=== PATIENT | male | born 1975 | race Hispanic/Latino ===

== ENCOUNTER 2021-11-29 15:13 | Emergency (ER) | payer OTHER ==
[~2021-11-29] VITALS: Ht 170.2 cm; Wt 99.8 kg
[2021-11-29 15:59] LABS: BASOPHILS % (AUTO) 0.1 % (0.0-5.0); EOSINOPHILS % (AUTO) 0.2 % (0.0-8.0); HEMATOCRIT 45.7 % (42-54); LYMPHOCYTES % (AUTO) 3.6 % (21.0-51.0); MEAN CORPUSCULAR HEMOGLOBIN 29.9 pg (27.0-33.0); MEAN CORPUSCULAR HGB CONC 34.6 g/dL (32.0-36.0); MEAN CORPUSCULAR VOLUME 86.4 fL (79-99); MONOCYTES % (AUTO) 2.4 % (3.0-13.0); NEUTROPHILS % (AUTO) 93.4 % (40.0-77.0); PLATELET COUNT (AUTO) 182 K/uL (130-400); RED BLOOD CELL COUNT(AUTO) 5.29 MIL/uL (4.50-6.20); RED CELL DISTRIBUTION WIDTH 13.2 % (11.0-15.5)
[2021-11-29] MEDS ORDERED: ONDANSETRON 4MG INJ IVP ONE (16:00)
[2021-11-29] MEDS ORDERED: 0.9%NACL 1000ML 2,000 ML IV ONE (16:00)
[2021-11-29 16:08] LABS: CREATININE 0.9 mg/dL (0.5-1.5); POTASSIUM 3.7 mmol/L (3.5-5.1)
[2021-11-29 16:13] LABS: BILIRUBIN,TOTAL 0.7 mg/dL (0.2-1.0); TOTAL PROTEIN, SERUM 7.8 g/dL (6.0-8.3)
[2021-11-29 16:31] VITALS: BP 111/72
[2021-11-29] MEDS ORDERED: ONDA4TAB10 PO (16:43)
== END 2021-11-29 16:52 | disposition home or self-care (01) ==
LOC: EDH 15:13
DX: K52.9 Noninfective gastroenteritis and colitis, unspecified (principal); E86.9 Volume depletion, unspecified; R11.10 Vomiting, unspecified; Z86.16 Personal history of COVID-19
CPT/HCPCS: 36415; 80053; 85025; 96361; 96374; 99283; J2405; J7030

== ENCOUNTER 2024-08-28 02:14 | Emergency (ER) | payer SELFPAY ==
[~2024-08-28] VITALS: Ht 172.7 cm; Wt 97.5 kg
[~2024-08-28 02:14] MED LIST: ONDA-243 PO; TAMS-1 PO
[2024-08-28 02:35] LABS: BASOPHILS # (AUTO) 0.03 K/uL (0.00-0.20); BASOPHILS % (AUTO) 0.2 % (0.0-5.0); EOSINOPHILS # (AUTO) 0.13 K/uL (0.00-0.70); EOSINOPHILS % (AUTO) 0.8 % (0.0-8.0); HEMATOCRIT 45.2 % (42-54); IMMATURE GRANULOCYTE ABSOLUTE 0.05 K/uL (0-1); LYMPHOCYTES % (AUTO) 5.7 % (21.0-51.0); MEAN CORPUSCULAR HEMOGLOBIN 30.1 pg (27.0-33.0); MEAN CORPUSCULAR VOLUME 86.1 fL (79-99); MONOCYTES # (AUTO) 0.5 K/uL (0.1-1.0); MONOCYTES % (AUTO) 2.8 % (3.0-13.0); NEUTROPHILS % (AUTO) 90.2 % (40.0-77.0); PLATELET COUNT (AUTO) 238 K/uL (130-400); RED BLOOD CELL COUNT(AUTO) 5.25 MIL/uL (4.50-6.20); RED CELL DISTRIBUTION WIDTH 12.9 % (11.0-15.5); WHITE BLOOD COUNT (AUTO) 16.6 K/uL (4.8-10.8)
[2024-08-28] MEDS: ondanSETRON 4MG INJ IVP ONE (02:35)
[2024-08-28] MEDS: LACTATED RINGERS 1000ML 1,000 ML IV ONE (02:35)
[2024-08-28] MEDS: PANTOPrazole 40 MG/VIAL IVP ONE (02:35)
[2024-08-28 02:45] LABS: POTASSIUM 4.1 mmol/L (3.5-5.1)
[2024-08-28 02:49] LABS: ALBUMIN 4.2 g/dL (3.5-5.0); BILIRUBIN,TOTAL 0.6 mg/dL (0.2-1.0); TOTAL PROTEIN, SERUM 7.8 g/dL (6.0-8.3)
[2024-08-28] MEDS ORDERED: DICY10 PO (03:37)
[2024-08-28] MEDS ORDERED: PANT40TA55 PO (03:37)
--- NOTE | 2024-08-28 03:37 | ERN ---
General Chief Complaint: Nausea,Vomiting,Diarrhea Stated Complaint: NAUSEA VOMITNG Time Seen by MD: 02:19 Source: patient History of Present Illness Initial Comments 48-YEAR-OLD MALE COMING IN WITH THE ABDOMINAL PAIN NAUSEA AND VOMITING AND DIARRHEA PER PATIENT THESE SYMPTOMS BEGAN EARLIER TODAY. HE ATTRIBUTES THESE SYMPTOMS ASSOCIATED WITH THE POSSIBLE CONTAMINATED FOOD. SICK CONTACTS INCLUDE . Allergies: Coded Allergies: No Known Allergies (Unverified Allergy, Unknown, 11/29/21) Home Meds Active Scripts Tamsulosin HCl (Flomax) 0.4 Mg Cap.er.24h, 0.4 MG PO DAILY, #30 CAPSULE.DR Prov:ADELAIDE NAVA 01/28/23 Ondansetron (Ondansetron Odt) 4 Mg Tab.rapdis, 4 MG PO TIDP PRN for VOMITING, #12 TAB 0 Refills Prov:SHAHANA MATA MD 11/29/21 Past Medical History Past Medical History: No Pertinent History Medical History Other: COVID 10/14 Past Surgical History: None Social History Social History: Other ROS Dictation CONSTITUTIONAL: NO CHILLS, NO FEVER, NO WEAKNESS, NO DIAPHORESIS, NO MALAISE. HEAD/FACE: NO SIGNS OF TRAUMA. EENT: NO EYE PAIN, NO BLURRED VISION, NO TEARING, NO DOUBLE VISION, NO EAR PAIN, NO EAR DISCHARGE, NO NOSE PAIN, NO NASAL CONGESTION, NO THROAT PAIN, NO THROAT SWELLING, NO MOUTH PAIN. RESPIRATORY: NO COUGH, NO ORTHOPNEA, NO SOB, NO STRIDOR, NO WHEEZING. CARDIOVASCULAR: NO CHEST PAIN, NO EDEMA, NO PALPITATIONS, NO SYNCOPE. GASTROINTESTINAL/ABDOMINAL: NO ABDOMINAL PAIN, NO CONSTIPATION, DIARRHEA, NAUSEA, VOMITING. GENITOURINARY: NO ABNORMAL DISCHARGE, NO DYSURIA, NO FREQUENT URINATION, NO HEMATURIA. NO COMPLAINTS OF PAIN IN THE GENITALS. MUSCULOSKELETAL: NO BACK PAIN, NO GOUT, NO JOINT PAIN, NO JOINT SWELLING, NO MUSCLE PAIN, NO MUSCLE STIFFNESS, NO NECK PAIN. INTEGUMENTARY: NO CHANGE IN COLOR, NO CHANGE IN HAIR/NAILS, NO DRYNESS, NO LESION, NO LUMPS, NO RASH. NEUROLOGICAL/PSYCH: NO ANXIETY, NOT DEPRESSED, NO EMOTIONAL PROBLEM, NO HEADACHE, NO NUMBNESS, NO PRE-EXISTING DEFICIT, NO HISTORY OF SEIZURES, NO TREMORS, NO WEAKNESS. HEMATOLOGIC/LYMPHATIC: NOT ANEMIC, NO HISTORY OF BLOOD CLOTS, NO APPARENT BLEEDING, NO BRUISING, GLANDS NOT SWOLLEN. ALL SYSTEMS NEGATIVE, EXCEPT NOTED. Physical Exam Physical Exam Dictation VITAL SIGNS: REVIEWED. GENERAL APPEARANCE: ALERT, ORIENTED X3, NO ACUTE DISTRESS, OBESE. HEAD AND FACE: NON-TRAUMATIC. EYES: PERRL, PINK CONJUNCTIVAS, EYELID NO TRAUMA, ANTERIOR CHAMBER CLEAR. EARS: PINNAS INTACT AND NO SIGNS OF TRAUMA OR ERYTHEMA. EAR CANALS CLEAR AND NO DISCHARGE. TMS NO ERYTHEMA. NOSE: NO DISCHARGE, NO BLEEDING. OROPHARYNX: MOUTH NORMAL, TEETH NO CARIES, TONGUE PINK. PHARYNX CLEAR, NO ERYTHEMA. TONSILS NO EXUDATES, NO ABSCESSES NOTED. MUCOUS MEMBRANE MOIST. NECK: SUPPLE, NON-TENDER, NO THYROMEGALY, NO MASSES, NO JVD, NO BRUITS. BREAST: DEFERRED. CHEST: NO TENDERNESS, NO CREPITUS, NO PARADOXICAL MOVEMENT, NO RETRACTIONS. LUNGS: CLEAR, WELL-VENTILATED, SYMMETRIC, NO RALES, NO WHEEZING, NO RHONCHI, NO STRIDOR, GOOD BREATH SOUNDS BILATERALLY. HEART: REGULAR RATE, REGULAR RHYTHM, NO MURMUR, NO GALLOPS. VASCULAR: NO PERIPHERAL EDEMA. ABDOMEN: SOFT, POSITIVE BOWEL SOUNDS, NONDISTENDED, NO GUARDING, NONTENDER, NO REBOUND, NO MASSES NO HEPATOMEGALY, NO SPLENOMEGALY, NO AHUMADA'S SIGN, NO HERNIAS. RECTAL: DEFERRED. GENITAL: DEFERRED. NEUROLOGICAL: NORMAL SPEECH, GROSS MOTOR FUNCTION INTACT, GROSS SENSORY FUNCTION INTACT. MUSCULOSKELETAL: NECK NONTENDER, FULL RANGE OF MOTION, BACK NONTENDER, FULL RANGE OF MOTION. EXTREMITIES: NONTENDER, FULL RANGE OF MOTION. SKIN: COLOR PINK, DRY, NO TURGOR, NO RASH, NO LACERATIONS, NO ABRASIONS, NO CONTUSIONS. LYMPHATICS: DEFERRED. Results Laboratory and Microbiology Lab and Micro Result Laboratory Tests Test 08/28/24 02:27 White Blood Count 16.6 K/uL (4.8-10.8) H Red Blood Count 5.25 MIL/uL (4.50-6.20) Hemoglobin 15.8 g/dL (14.0-18.0) Hematocrit 45.2 % (42-54) Mean Corpuscular Volume 86.1 fL (79-99) Mean Corpuscular Hemoglobin 30.1 pg (27.0-33.0) Mean Corpuscular Hemoglobin Concent 35.0 g/dL (32.0-36.0) Red Cell Distribution Width 12.9 % (11.0-15.5) Platelet Count 238 K/uL (130-400) Mean Platelet Volume 11.2 fL (7.5-10.5) H Immature Granulocyte % (Auto) 0.3 % (0-1) Neutrophils (%) (Auto) 90.2 % (40.0-77.0) H Lymphocytes (%) (Auto) 5.7 % (21.0-51.0) L Monocytes (%) (Auto) 2.8 % (3.0-13.0) L Eosinophils (%) (Auto) 0.8 % (0.0-8.0) Basophils (%) (Auto) 0.2 % (0.0-5.0) Neutrophils # (Auto) 15.0 K/uL (1.8-7.7) H Lymphocytes # (Auto) 1.0 K/uL (1.0-4.8) Monocytes # (Auto) 0.5 K/uL (0.1-1.0) Eosinophils # (Auto) 0.13 K/uL (0.00-0.70) Basophils # (Auto) 0.03 K/uL (0.00-0.20) Absolute Immature Granulocyte (auto 0.05 K/uL (0-1) Nucleated Red Blood Cells 0.0 % (0.0-0.19) White Cell Morphology Comment See comments Sodium Level 142 mmol/L (136-145) Potassium Level 4.1 mmol/L (3.5-5.1) Chloride Level 101 mmol/L (101-111) Carbon Dioxide Level 26 mmol/L (21-32) Blood Urea Nitrogen 11 mg/dL (7-18) Creatinine 1.0 mg/dL (0.5-1.3) Glomerular Filtration Rate Calc 94 mL/min (>90) Random Glucose 127 mg/dL (70-105) H Total Calcium 8.9 mg/dL (8.5-10.1) Total Bilirubin 0.6 mg/dL (0.2-1.0) Aspartate Amino Transf (AST/SGOT) 23 U/L (10-37) Alanine Aminotransferase (ALT/SGPT) 49 U/L (12-78) Alkaline Phosphatase 121 U/L (50-136) Total Creatine Kinase 101 U/L (21-232) Troponin I High Sensitivity 5 ng/L (4-75) Total Protein 7.8 g/dL (6.0-8.3) Albumin 4.2 g/dL (3.5-5.0) Lipase 19 U/L (16-77) Labs Reviewed?: Yes EKG/XRAY/US/CT/MRI EKG Comment 08/28/2024 TIME 2:25 A.M. VENTRICULAR RATE 90 SINUS RHYTH[address] LA [address] WAVE ELEVATION OR DEPRESSION MDM MDM: DIFFERENTIAL DIAGNOSIS: VIRAL GASTROENTERITIS, FOOD POISONING, GASTRITIS PATIENT IS A 48-YEAR-OLD MALE COMING IN WITH COMPLAINTS OF NAUSEA AND VOMITING. LABORATORY WORKUP MILD LEUKOCYTOSIS. PATIENT'S SYMPTOMS IMPROVED WITH NS AND PROTONIX. PATIENT WILL BE DISCHARGED WITH PROTONIX AND BENTYL FOR SPASMS. I ADVISED HIM DIET MODIFICATIONS IN ORDER TO HELP WITH THE SYMPTOMS WELL. PATIENT WILL BE DISCHARGED IN STABLE CONDITION. ED Course Orders Procedure Category Date Status Time Cbc With Differential LAB 08/28/24 Complete 02:22 Comprehensive LAB 08/28/24 Complete Metabolic Panel 02:22 Troponin I High LAB 08/28/24 Complete Sensitivity 02:22 Urinalysis Profile LAB 08/28/24 Logged 02:22 12 Lead Ekg Tracing- EKG 08/28/24 Logged Technical 02:22 Lactated Ringers PHA 08/28/24 Complete 1000ml (Lactated 02:30 Ondansetron 4mg Inj PHA 08/28/24 Complete (Zofran 4mg Inj) 02:30 Pantoprazole 40mg Inj PHA 08/28/24 Complete (Protonix 40mg Inj 02:30 Creatine Kinase, Total LAB 08/28/24 Complete 02:22 Lipase LAB 08/28/24 Complete 02:22 Current Medications Medications (Trade) Dose Ordered Sig/Michael Route PRN Reason Start Time Stop Time Status Last Admin Dose Admin Lactated Ringer's 1,000 ml @ 0 mls/hr ONCE ONCE IV 08/28/24 02:30 08/28/24 02:31 DC 08/28/24 02:35 Ondansetron HCl (zoFRAN 4MG INJ) 4 mg ONCE ONCE IVP 08/28/24 02:30 08/28/24 02:31 DC 08/28/24 02:35 Pantoprazole Sodium (PROTonix 40MG INJ) 40 mg ONCE ONCE IVP 08/28/24 02:30 08/28/24 02:31 DC 08/28/24 02:35 Vital Signs Date Time Temp Pulse Resp B/P (MAP) Pulse Ox O2 Delivery O2 Flow Rate FiO2 08/28/24 02:18 98.4 84 18 116/77 98 Room Air* 0 21 08/28/24 02:16 98.4 99 18 115/77 99 Room Air DX & DISP Disposition: Discharge Departure Impression: Primary Impression: Acute gastroenteritis Additional Impression: Vomiting and diarrhea Condition: Stable Scripts Dicyclomine HCl (Bentyl) 10 Mg Cap 1 CAP PO BID PRN for irritable bowel symptoms for 5 Days, #10 CAP 0 Refills Prov: JEAN PAUL ANNE MD 08/28/24 Pantoprazole Sodium (Protonix) 40 Mg Ectab 1 TAB PO DAILY for 30 Days, #30 TAB 0 Refills Prov: JEAN PAUL ANNE MD 08/28/24 Additional Instructions: FOLLOW-UP WITH PRIMARY CARE PROVIDER IN 1 TO 2 DAYS. TAKE MEDICATIONS DIRECTED HERE IN THE EMERGENCY ROOM. OKAY TO CONTINUE HOME MEDICATIONS UNLESS OTHERWISE DISCUSSED DURING YOUR VISIT IN THE EMERGENCY ROOM TODAY. RETURN TO YOUR NEAREST EMERGENCY ROOM IF SYMPTOMS WORSEN OR IF THERE IS NO IMPROVEMENT. CALL 911 IF YOU NEED IMMEDIATE ASSISTANCE. TAKE TYLENOL [id number] NEEDED AND IF NO CONTRAINDICATIONS ARE PRESENT. INCREASE ORAL HYDRATION. A WOUND CULTURE OR URINE CULTURE WAS ORDERED HERE IN THE EMERGENCY ROOM DEPARTMENT PLEASE FOLLOW-UP WITH PRIMARY CARE PROVIDER AND ADVISE THEM TO GET REPEAT PORTS FROM OUR FACILITY. IF YOU HAD ANY MATHEW WRAP/SPLINTS THAT WERE APPLIED HERE, PLEASE DO NOT REMOVE THEM UNTIL YOU SEE YOUR PRIMARY CARE OR SPECIALTY. REFERRALS: Referrals: SELF,REFERRAL (PCP) Time of Disposition: 03:36 JEAN PAUL ANNE MD Aug 28, 2024 03:37
[2024-08-28 03:50] VITALS: BP 124/72; PULSE 80; RESP 15; TEMP 98.2; O2SAT 99
--- NOTE | 2024-08-28 06:06 | EKG ---
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
== END 2024-08-28 03:51 | disposition home or self-care (01) ==
LOC: EDH 02:14
DX: K52.9 Noninfective gastroenteritis and colitis, unspecified (principal); R11.2 Nausea with vomiting, unspecified; Z86.16 Personal history of COVID-19
CPT/HCPCS: 99284; 96374; 96375; 82550; 84484; 80053; 83690; 85025; 36415; 93005; J7120; J2405; J2470